=== PATIENT | female | born 1985 | race Caucasian/White ===

== ENCOUNTER 2017-12-19 14:20 | Emergency (ER) | payer OTHER ==
[~2017-12-19] VITALS: Ht 160 cm; Wt 58.1 kg
[~2017-12-19 14:20] MED LIST: AMOXICILLIN500 M1 PO; AUGMENTIN 875-1 EACH PO; AUGMENTIN 875875 MG PO; CIPRO500 MG PO; CLEOCIN HCL150 MG PO; DIFLUCAN150 MG PO; FLAGYL500 MG PO; GABAPENTIN 100100 MG PO; HYDROCODONE-AP1 EAC6 PO; HYDROCODONE-APA1 TA1 PO; IBUPROFEN 600600 M1 PO; IBUPROFEN 800800 M1 PO; LIORESAL 10 MG10 MG PO; MEDROLDOSEPACK PO; MOBIC7.5 MG PO; NEURONTIN300 MG; NORCO 5-325 TA1 EAC1 PO; NORCO 5-325 TA1 EACH PO; PHENAZOPYRIDIN200 M2 PO; PREDNISONE 5 MG5 MG PO; ROBAXIN 750 MG750 M1 PO; ROBAXIN 750 MG750 MG PO; TRAMADOL 50 MG50 MG PO; ZANAFLEX4 MG PO
[2017-12-19] MEDS ORDERED: NEURONTIN 300300 M1 PO (14:31)
[2017-12-19 15:01] VITALS: BP 119/70
[2017-12-19] MEDS ORDERED: TRAMADOL 50 MG50 MG PO (15:01)
[2017-12-19] MEDS ORDERED: AMOXICILLIN 50500 MG PO (15:01)
== END 2017-12-19 15:08 | disposition home or self-care (01) ==
LOC: M.ERS 14:20
DX: K08.89 Other specified disorders of teeth and supporting structures (principal); F17.210 Nicotine dependence, cigarettes, uncomplicated; Z88.5 Allergy status to narcotic agent; Z88.1 Allergy status to other antibiotic agents; Z88.8 Allergy status to other drugs, medicaments and biological substances

== ENCOUNTER 2018-01-04 16:37 | Emergency (ER) | payer OTHER ==
[~2018-01-04] VITALS: Ht 160 cm; Wt 58.1 kg
[~2018-01-04 16:37] MED LIST changes: +AMOXICILLIN 50500 MG PO; +NEURONTIN 300300 M1 PO
[2018-01-04] MEDS ORDERED: ROBAXIN500 MG PO (18:21)
[2018-01-04 18:29] VITALS: BP 117/80
== END 2018-01-04 18:30 | disposition home or self-care (01) ==
LOC: M.ERS 16:37
DX: S16.1XXA Strain of muscle, fascia and tendon at neck level, initial encounter (principal); M54.12 Radiculopathy, cervical region; F17.210 Nicotine dependence, cigarettes, uncomplicated; Z88.5 Allergy status to narcotic agent; Z88.6 Allergy status to analgesic agent; Z88.2 Allergy status to sulfonamides; X58.XXXA Exposure to other specified factors, initial encounter; Y93.89 Activity, other specified; Y92.89 Other specified places as the place of occurrence of the external cause; Y99.8 Other external cause status

== ENCOUNTER 2018-03-13 03:28 | Emergency (ER) | payer OTHER, MEDICAID ==
[~2018-03-13] VITALS: Ht 160 cm; Wt 56.7 kg
[~2018-03-13 03:28] MED LIST changes: +ROBAXIN500 MG PO
[2018-03-13] MEDS ORDERED: ZANAFLEX4 MG PO (03:40)
[2018-03-13] MEDS ORDERED: NORCO 5-325 TA1 EACH PO (04:23)
[2018-03-13 04:43] VITALS: BP 116/75
== END 2018-03-13 04:44 | disposition home or self-care (01) ==
LOC: M.ERS 03:28
DX: S66.811A Strain of other specified muscles, fascia and tendons at wrist and hand level, right hand, initial encounter (principal); F17.210 Nicotine dependence, cigarettes, uncomplicated; Z88.6 Allergy status to analgesic agent; Z88.5 Allergy status to narcotic agent; Z88.2 Allergy status to sulfonamides; W22.01XA Walked into wall, initial encounter; Y93.89 Activity, other specified; Y92.89 Other specified places as the place of occurrence of the external cause; Y99.8 Other external cause status

== ENCOUNTER 2018-05-26 10:57 | Emergency (ER) | payer OTHER, MEDICAID ==
[~2018-05-26] VITALS: Ht 160 cm; Wt 56.7 kg
[2018-05-26 11:29] LABS: URINE BILIRUBIN NEGATIVE (Negative); URINE BLOOD TRACE (Negative); URINE CLARITY CLEAR; URINE COLOR YELLOW; URINE GLUCOSE-RANDOM NEGATIVE (Negative); URINE KETONES NEGATIVE (Negative); URINE LEUKOCYTES-REFLEX NEGATIVE (Negative); URINE NITRITE-REFLEX NEGATIVE (Negative); URINE PROTEIN NEGATIVE (Negative); URINE SPECIFIC GRAVITY <= 1.005 (1.005-1.030); URINE UROBILINOGEN 0.2 E.U./dl (0.2-1.0)
[2018-05-26 11:41] LABS: ABSOLUTE LYMPHOCYTES 1.3 thou/uL (0.8-5.3); ABSOLUTE MONOCYTES 0.3 thou/uL (0.0-1.2); ABSOLUTE NEUTROPHILS 3.6 thou/uL (1.6-8.1); BASOPHILS 0.4 %; EOSINOPHILS 0.2 %; HEMATOCRIT 36.6 % (37.0-47.0); HEMOGLOBIN 12.5 gm/dL (12.0-15.0); LYMPHOCYTES 24.3 %; MCHC 34.1 g/dL (28.0-37.0); MCV 93.8 fL (80.0-100.0); MONOCYTES 5.7 %; MPV 8.8 fl. (7.2-11.1); NUCLEATED RBCS 0 /100WBC; PLATELET COUNT* 202 thou/uL (150-400); POLYS 69.4 %; RDW-CV 13.8 % (10.5-14.5); WBC 5.2 thou/uL (4.0-11.0)
[2018-05-26 11:58] LABS: CALCIUM 8.4 mg/dL (8.5-10.1); CREATININE 0.7 mg/dL (0.6-1.3); POTASSIUM 3.2 mmol/L (3.5-5.1)
[2018-05-26 12:02] LABS: ALBUMIN 3.9 g/dL (3.4-5.0); TOTAL BILIRUBIN 0.2 mg/dL (<0.1-1.0); TOTAL PROTEIN 6.8 g/dL (6.4-8.2)
[2018-05-26] MEDS ORDERED: NORCO 5-325 TA1 EACH PO (12:55)
[2018-05-26] MEDS ORDERED: ZOFRAN ODT4 MG PO (12:55)
[2018-05-26] MEDS ORDERED: KEFLEX500 M1 PO (12:55)
[2018-05-26] MEDS ORDERED: MOBIC15 MG PO (12:55)
[2018-05-26 13:14] VITALS: BP 109/67
== END 2018-05-26 13:15 | disposition home or self-care (01) ==
LOC: M.ERS 10:57
PROVIDERS: Nurse Practitioner Family
DX: N83.202 Unspecified ovarian cyst, left side (principal); N39.0 Urinary tract infection, site not specified; F17.210 Nicotine dependence, cigarettes, uncomplicated; Z88.2 Allergy status to sulfonamides; Z88.5 Allergy status to narcotic agent; Z88.8 Allergy status to other drugs, medicaments and biological substances

== ENCOUNTER 2018-07-28 00:53 | Emergency (ER) | payer OTHER, MEDICAID ==
[~2018-07-28] VITALS: Ht 160 cm; Wt 54.4 kg
[~2018-07-28 00:53] MED LIST changes: +KEFLEX500 M1 PO; +MOBIC15 MG PO; +ZOFRAN ODT4 MG PO
[2018-07-28] MEDS ORDERED: HYDROXYZINE HCL25 M1 PO (02:17)
[2018-07-28] MEDS ORDERED: COMPAZINE10 MG PO (02:17)
[2018-07-28 02:27] VITALS: BP 98/58
== END 2018-07-28 02:27 | disposition home or self-care (01) ==
LOC: M.ERS 00:53
DX: R51 Headache (principal); F17.210 Nicotine dependence, cigarettes, uncomplicated; Z88.1 Allergy status to other antibiotic agents; Z88.2 Allergy status to sulfonamides; Z88.5 Allergy status to narcotic agent; Z88.8 Allergy status to other drugs, medicaments and biological substances; Z98.890 Other specified postprocedural states

== ENCOUNTER 2018-08-09 17:02 | Emergency (ER) | payer OTHER, MEDICAID ==
[~2018-08-09] VITALS: Ht 160 cm; Wt 54.4 kg
[~2018-08-09 17:02] MED LIST changes: +COMPAZINE10 MG PO; +HYDROXYZINE HCL25 M1 PO
[2018-08-09 17:35] LABS: URINE BILIRUBIN NEGATIVE (Negative); URINE BLOOD 2+ (Negative); URINE CLARITY CLEAR; URINE COLOR YELLOW; URINE GLUCOSE-RANDOM NEGATIVE (Negative); URINE KETONES NEGATIVE (Negative); URINE NITRITE-REFLEX NEGATIVE (Negative); URINE PROTEIN NEGATIVE (Negative); URINE SPECIFIC GRAVITY 1.015 (1.005-1.030)
[2018-08-09 17:37] LABS: URINE LEUKOCYTES-REFLEX 2+ (Negative)
[2018-08-09 17:54] LABS: SQUAMOUS >10 Many /LPF (0-3)
[2018-08-09 17:55] LABS: MUCUS 0-3 Light strn/LPF (None Seen)
[2018-08-09 17:56] LABS: CASTS None Seen /LPF (None Seen); CRYSTALS None Seen /LPF (None Seen); URINE RBC 3-10 Few /HPF (0-2); URINE WBC-REFLEX >25 Many /HPF (0-5); WBC CLUMPS Few (None Seen)
[2018-08-09 19:35] LABS: ABSOLUTE LYMPHOCYTES 1.1 thou/uL (0.8-5.3); ABSOLUTE MONOCYTES 0.3 thou/uL (0.0-1.2); ABSOLUTE NEUTROPHILS 3.8 thou/uL (1.6-8.1); BASOPHILS 0.4 %; EOSINOPHILS 0.1 %; HEMATOCRIT 36.1 % (37.0-47.0); HEMOGLOBIN 12.1 gm/dL (12.0-15.0); MCH 30.3 pg (26.0-34.0); MCHC 33.5 g/dL (28.0-37.0); MCV 90.5 fL (80.0-100.0); MONOCYTES 5.2 %; MPV 8.6 fl. (7.2-11.1); NUCLEATED RBCS 0 /100WBC; PLATELET COUNT* 198 thou/uL (150-400); POLYS 73.3 %; RBC 3.98 mil/uL (4.20-5.00); RDW-CV 13.2 % (10.5-14.5); WBC 5.2 thou/uL (4.0-11.0)
[2018-08-09 19:47] LABS: CREATININE 0.7 mg/dL (0.6-1.3)
[2018-08-09 19:49] LABS: POTASSIUM 2.9 mmol/L (3.5-5.1)
[2018-08-09 19:51] LABS: ALBUMIN 3.7 g/dL (3.4-5.0); TOTAL BILIRUBIN 0.4 mg/dL (<0.1-1.0); TOTAL PROTEIN 7.6 g/dL (6.4-8.2)
[2018-08-09] MEDS ORDERED: ULTRAM 50MG TAB50 MG PO (20:29)
[2018-08-09] MEDS ORDERED: CIPROFLOXACIN500 M1 PO (20:29)
[2018-08-09 21:04] VITALS: BP 107/57
== END 2018-08-09 21:06 | disposition home or self-care (01) ==
LOC: M.ERS 17:02
PROVIDERS: Nurse Practitioner Family
DX: N39.0 Urinary tract infection, site not specified (principal); E87.6 Hypokalemia

== ENCOUNTER 2018-10-25 17:57 | Emergency (ER) | payer OTHER ==
[~2018-10-25] VITALS: Ht 160 cm; Wt 56.7 kg
[~2018-10-25 17:57] MED LIST changes: +CIPROFLOXACIN500 M1 PO; +ULTRAM 50MG TAB50 MG PO
[2018-10-25] MEDS ORDERED: TRAMADOL 50 MG50 MG PO (20:18)
[2018-10-25] MEDS ORDERED: ROBAXIN 750 MG750 M1 PO (20:18)
[2018-10-25 20:32] VITALS: BP 108/74
== END 2018-10-25 20:33 | disposition home or self-care (01) ==
LOC: M.ERS 17:57
DX: M54.5 Low back pain (principal); M54.6 Pain in thoracic spine; F17.210 Nicotine dependence, cigarettes, uncomplicated; Z88.8 Allergy status to other drugs, medicaments and biological substances; Z88.5 Allergy status to narcotic agent; Z88.2 Allergy status to sulfonamides

== ENCOUNTER 2019-01-15 20:21 | Emergency (ER) | payer OTHER ==
[~2019-01-15] VITALS: Ht 160 cm; Wt 57.6 kg
[2019-01-15] MEDS ORDERED: PROZAC20 MG (20:30)
[2019-01-15 20:50] LABS: URINE BILIRUBIN NEGATIVE (Negative); URINE BLOOD NEGATIVE (Negative); URINE CLARITY CLEAR; URINE COLOR YELLOW; URINE GLUCOSE-RANDOM NEGATIVE (Negative); URINE KETONES TRACE (Negative); URINE LEUKOCYTES-REFLEX NEGATIVE (Negative); URINE NITRITE-REFLEX NEGATIVE (Negative); URINE PROTEIN NEGATIVE (Negative); URINE SPECIFIC GRAVITY 1.025 (1.005-1.030); URINE UROBILINOGEN 0.2 E.U./dl (0.2-1.0)
[2019-01-15 20:57] LABS: AMP/METHAMP Negative (Negative); BARBITURATES Negative (Negative); BENZODIAZEPINES Negative (Negative); COCAINE Negative (Negative); METHADONE Negative (Negative); OPIATES POSITIVE (Negative); PCP Negative (Negative); THC Negative (Negative)
[2019-01-15] MEDS ORDERED: TRAMADOL 50 MG50 MG PO (21:13)
[2019-01-15 21:32] VITALS: BP 108/69
== END 2019-01-15 21:33 | disposition home or self-care (01) ==
LOC: M.ERS 20:21
PROVIDERS: Emergency Medicine
DX: M54.5 Low back pain (principal); F17.210 Nicotine dependence, cigarettes, uncomplicated; Z88.6 Allergy status to analgesic agent; Z88.5 Allergy status to narcotic agent; Z88.2 Allergy status to sulfonamides

== ENCOUNTER → 2019-05-05 | Emergency (ER) | payer OTHER ==
[~2019-05-05] VITALS: Ht 160 cm; Wt 58.1 kg
[~2019-05-05] MED LIST changes: +PROZAC20 MG
[2019-05-05 22:11] VITALS: BP 104/64
== END ==
LOC: M.ERS 21:58
DX: S60.221A Contusion of right hand, initial encounter (principal); F17.210 Nicotine dependence, cigarettes, uncomplicated; Z88.6 Allergy status to analgesic agent; Z88.5 Allergy status to narcotic agent; Z88.8 Allergy status to other drugs, medicaments and biological substances; W22.8XXA Striking against or struck by other objects, initial encounter; Y92.89 Other specified places as the place of occurrence of the external cause; Y93.89 Activity, other specified; Y99.8 Other external cause status